=== PATIENT | female | born 1970 | race Caucasian/White ===

== ENCOUNTER 2019-10-10 17:55 | Emergency (ER) | payer SELFPAY ==
--- NOTE | 2019-10-10 19:36 | ERPHSYRPT ---
- History of Present Illness Time Seen by Provider: 10/10/19 18:35 Patient Subjective Stated Complaint: L sided rib pain Triage Nursing Assessment: Pt to ED c/o L rib pain onset this am. states she fell when walking her dogs, landed with L elbow in ribs. denies any arm pain. states pain worsens with deep breaths and twisting abd. no obvious injury noted. mildly tender to palp. no bruising noted. no diff breathing or SOB. lung sounds clear. heartsounds clear. Physician History: Is a 49-year-old female who was walking her dogs which are sizable animals and 1 pulled her in one direction the other wrapped the leash around her legs and caused her to fall landing on her left side with the left arm into her left ribs. She completely complains of pain in the left rib area she denies loss of consciousness she denies other pain. Occurred: just prior to arrival Reason for Fall: tripped Injuries/Pain Location: chest Loss of Consciousness: no loss of consciousness Quality: sharpness Severity of Pain-Max: moderate Severity of Pain-Current: moderate Modifying Factors: Improves With: nothing Associated Symptoms (Fall): denies symptoms Allergies/Adverse Reactions: No Known Drug Allergies Allergy (Verified 10/10/19 18:35) Hx Tetanus, Diphtheria Vaccination/Date Given: Yes Hx Influenza Vaccination/Date Given: Yes Hx Pneumococcal Vaccination/Date Given: No Immunizations Up to Date: Yes Travel Risk - International Travel Have you traveled outside of the country in past 3 weeks: No - Coronavirus Screening Are you exhibiting any of the following symptoms?: No Close contact with a COVID-19 positive Pt in past 14-21 Days: No - Review of Systems Constitutional: No Fever, No Chills Eyes: No Symptoms Ears, Nose, & Throat: No Symptoms Respiratory: No Cough, No Dyspnea Cardiac: No Chest Pain, No Edema, No Syncope Abdominal/Gastrointestinal: No Abdominal Pain, No Nausea, No Vomiting, No Diarrhea Genitourinary Symptoms: No Dysuria Musculoskeletal: No Back Pain, No Neck Pain Skin: No Rash Neurological: No Dizziness, No Focal Weakness, No Sensory Changes Psychological: No Symptoms Endocrine: No Symptoms All Other Systems: Reviewed and Negative - Past Medical History Pertinent Past Medical History: Yes Neurological History: Epilepsy - Past Surgical History Past Surgical History: Yes Female Surgical History: Tubal Ligation - Social History Smoking Status: Former smoker Exposure to second hand smoke: No Drug Use: none Patient Lives Alone: No - Female History Hx Now: No - Nursing Vital Signs Nursing Vital Signs: Initial Vital Signs Temperature 98.5 F 10/10/19 18:16 Pulse Rate 83 10/10/19 18:16 Respiratory Rate 18 10/10/19 18:16 Blood Pressure 146/92 10/10/19 18:16 O2 Sat by Pulse Oximetry 95 10/10/19 18:16 Pain Scale Pain Intensity 10 - [place] Score Best Eye Response ([place]): (4) open spontaneously Best Verbal Response ([place]): (5) oriented Best Motor Response ([place]): (6) obeys commands [place] Total: 15 - Physical Exam General Appearance: mild distress, alert Head Injury: no evidence of injury Eye Exam: PERRL/EOMI ENT Exam: airway nml Neck Exam: normal inspection, No tenderness Respiratory/Chest Exam: normal breath sounds, rib tenderness (left), No chest tenderness, No respiratory distress Cardiovascular Exam: normal heart sounds, regular rate/rhythm Gastrointestinal Exam: soft, No tenderness, No distention, No guarding, No ecchymosis Back Exam: normal inspection, No vertebral tenderness Extremity Exam: normal inspection, normal range of motion, pelvis stable, No deformities Neurologic Exam: alert, oriented x 3, cooperative, sensation nml, No motor deficits Skin Exam: normal color, warm, dry SpO2: 95 - Course Nursing assessment & vital signs reviewed: Yes - Radiology Exams Ribs X-ray Interpretation: Interpreted by me, No Fracture Ordered Tests: Active Orders 24 hr Category Date Time Status RIBS UNILATERAL Stat Exams 10/10/19 Ordered - Progress Progress: unchanged - Departure Departure Disposition: Home Clinical Impression: Chest wall contusion Condition: Stable Critical Care Time: No Referrals: DANE EL MD [Primary Care Provider] - Instructions: Bruised Rib Prescriptions: Hydrocodone/APAP 5-325 Tab^^^ [[place] 5-325 Tablet^^^] 1 tab PO Q6HPRN PRN #10 tablet MDD 6 PRN Reason: Pain
[2019-10-10 20:02] VITALS: PULSE 78
[2019-10-10 20:11] VITALS: BP 150/93; O2SAT 96
--- NOTE | 2019-10-11 07:49 | XRAY ---
Indication: Pain following fall. Comparison: None 2 view left ribs demonstrates mild acromioclavicular degenerative arthropathy. No other bony, articular, or soft tissue abnormalities.
== END 2019-10-10 20:12 | disposition home or self-care (01) ==
LOC: ED 17:55
DX: R07.81 Pleurodynia (principal); W01.198A Fall on same level from slipping, tripping and stumbling with subsequent striking against other object, initial encounter; Y93.K1 Activity, walking an animal; Y92.9 Unspecified place or not applicable; G40.909 Epilepsy, unspecified, not intractable, without status epilepticus
CPT/HCPCS: 71100; 99283